=== PATIENT | male | born 1945 | race Caucasian/White ===

== ENCOUNTER → 2023-09-25 | Outpatient (CLI) | payer OTHER, SELFPAY ==
[2023-09-25 08:33] LABS: Color, Urine Yellow (Yellow); Glucose, Dipstick Normal (Normal); Ketone-Dipstick 5 mg/dl (Negative); Leukocyte Esterase-Dipstick 25 /ul (Negative); Nitrite-Dipstick Negative (Negative); Occult Blood-Urine Negative /ul (Negative); Protein-Dipstick 30 mg/dl (Negative); Urine Clarity Clear (Clear); Urine Urobilinogen 4 mg/dl (Normal)
[2023-09-25 08:34] LABS: Urine Bilirubin Dipstick 1 mg/dL (Negative)
[2023-09-25 08:48] LABS: AST(SGOT) 21 U/L (15-37); Alanine Aminotransfer ALT/SGPT 28 U/L (16-61); Albumin, Serum 3.6 g/dL (3.2-5.0); Alkaline Phosphatase 105 U/L (45-117); Anion Gap 4 (5-15); BUN 17 mg/dL (7-18); BUN/Creat Ratio 15.7 RATIO (10-20); Calcium,Total 9.1 mg/dL (8.5-10.1); Chloride 108 mmol/L (98-107); Creatinine, Serum 1.08 mg/dL (0.70-1.30); EST Glomerular Filtration Rate 71 mL/min (>60); Est Glom Filt Rate - Afr Amer 85 mL/min (>60); Globulin 3.6 g/dL (2.2-4.2); Glucose 158 mg/dL (74-106); Potassium 3.2 mmol/L (3.5-5.1); Protein, Total 7.2 g/dL (6.4-8.2); Sodium Level 143 mmol/L (136-145)
--- NOTE | 2023-09-25 12:41 | ECHOD_ITS ---
Reason For Study: CAD/ASHD Procedure This was a 2D Doppler, Color Flow transthoracic echocardiogram. Exam performed in department. Left Ventricle Normal size and thickness. The left ventricular ejection fraction is 65 %. Normal diastology for age. Right Ventricle Normal right ventricle. Atria The left atrium is severely enlarged. Normal right atrium. Mitral Valve Trivial mitral valve insufficiency. Tricuspid Valve Trivial tricuspid valve insufficiency. Unable to estimate RV systolic pressure due to insufficient tricuspid regurgitant envelope. Aortic Valve Trisinus/trileaflet aortic valve. Mild (1+) aortic valve insufficiency. Pulmonic Valve The pulmonic valve is not well visualized. Great Vessels Normal sized aortic root. Pericardium/Pleural No pericardial effusion. MMode/2D Measurements & Calculations LVIDd: 5.4 cm IVSd: 1.1 cm Ao root diam: 3.3 cm LVIDs: 3.9 cm LVPWd: 1.1 cm RVDd: 3.0 cm FS: 27.9 % LAV(MOD-bp): 60.8 ml LVAd ap4: 36.7 cm2 LVAd ap2: 29.7 cm2 LAV(MOD-bp) Indexed: 30.5 ml/m2 LVLd ap4: 8.4 cm LVLd ap2: 7.6 cm LAV(MOD-sp2): 53.3 ml EDV(MOD-sp4): 132.6 ml EDV(MOD-sp2): 94.2 ml LAV(MOD-sp4): 67.4 ml EDV(sp4-el): 136.3 ml EDV(sp2-el): 98.2 ml LVAs ap4: 20.2 cm2 LVAs ap2: 17.9 cm2 LVLs ap4: 6.4 cm LVLs ap2: 6.5 cm ESV(MOD-sp4): 53.0 ml ESV(MOD-sp2): 41.0 ml ESV(sp4-el): 54.1 ml ESV(sp2-el): 41.7 ml EF(MOD-sp4): 60.0 % EF(MOD-sp2): 56.5 % EF(sp4-el): 60.3 % SV(MOD-sp4): 79.6 ml SV(MOD-sp2): 53.3 ml SV(sp4-el): 82.2 ml LA dimension(2D): 5.1 cm LA A4 area: 22.4 cm2 RA A4 area: 14.0 cm2 TAPSE: 2.5 cm Time Measurements MV dec time: 0.21 sec Doppler Measurements & Calculations MV E max brandon: 82.9 cm/sec Lat Peak E' Brandon: 7.3 cm/sec Med Peak E' Brandon: 7.0 cm/sec MV A max brandon: 94.1 cm/sec E/E' lat: 11.4 E/E' med: 11.8 MV E/A: 0.88 MV V2 max: 93.9 cm/sec MV P1/2t max brandon: 90.8 cm/sec Ao V2 max: 115.3 cm/sec MV max P.5 mmHg MV P1/2t: 97.1 msec Ao max P.3 mmHg MV V2 mean: 51.5 cm/sec MV dec slope: 274.0 cm/sec2 Ao V2 mean: 80.2 cm/sec MV mean P.2 mmHg Ao mean P.9 mmHg MV V2 VTI: 32.2 cm MVA(P1/2t): 2.3 cm2 Ao V2 VTI: 29.4 cm AV (velocity ratio): 0.96 LV V1 max: 103.4 cm/sec PA V2 max: 92.2 cm/sec LV V1 max P.3 mmHg PA V2 mean: 64.5 cm/sec LV V1 mean P.6 mmHg LV V1 mean: 75.4 cm/sec LV V1 VTI: 28.3 cm ECHO/Echo Complete Interpretation Summary The left ventricular ejection fraction is 65 %. The left atrium is severely enlarged. Mild (1+) aortic valve insufficiency. Ordering Physician: Alexander Steward Referring Physician: [facility] Performed By: Leila Mistry RDCS, RVT
== END | disposition home or self-care (01) ==
LOC: CVS 12:41
PROVIDERS: Referring Provider Chiropractor; Visit Provider Chiropractor
DX: E11.9 Type 2 diabetes mellitus without complications (principal); I25.10 Atherosclerotic heart disease of native coronary artery without angina pectoris
CPT/HCPCS: 36415; 80053; 81002; 93306